=== PATIENT | male | born 1955 | race Caucasian/White ===

== ENCOUNTER 2017-01-09 16:02 | Observation (INO) | payer MEDICAID ==
[~2017-01-09] VITALS: Ht 175.3 cm; Wt 74.8 kg
[2017-01-09] MEDS ORDERED: IOHEXOL 300 MG/ML 100ML BOTTLE IJ ONE (16:26)
[2017-01-09] MEDS ORDERED: SODIUM CHLORIDE 0.9% 1,000 ML IV ONE (16:29)
[2017-01-09] MEDS ORDERED: TETANUS-DIPTH-ACEL PERTUSSIS 0.5ML SYRG IM ONE (16:30)
[2017-01-09 17:01] LABS: Basophils # (auto) 0 uL; Basophils % (auto) 0.5 % (0.0-2.0); DEFINITIVE VIEW TRANSMISSION; Eosinophils # (auto) 0.1 uL; Eosinophils % (auto) 2.6 % (0.0-7.0); Hematocrit 36.1 % (41.0-53.0); Hemoglobin 11.9 g/dL (13.5-17.5); Lymphocytes # (auto) 2.2 uL; Lymphocytes % (auto) 40.3 % (10.0-50.0); Mean Corpuscular Hemoglobin 26.5 pg (28.0-32.0); Mean Corpuscular Hgb Conc. 32.9 g/dL (32.0-36.0); Mean Corpuscular Volume 80.7 fL (80.0-100.0); Mean Platelet Volume 7.5 fL (7.4-10.4); Monocytes # (auto) 0.8 uL; Monocytes % (auto) 14.4 % (0.0-12.0); Neutrophils # (auto) 2.4 uL; Neutrophils % (auto) 42.2 % (37.0-80.0); Platelet Count (auto) 276 10^3/uL (140-450); Red Cell Distribution Width 15.8 % (11.6-16.0); White Blood Cell 5.6 10^3/uL (4.4-10.8)
[2017-01-09 17:06] LABS: Albumin 3.6 g/dL (3.4-5.0); Anion Gap 10 (5-15); Aspartate Aminotransferase 22 U/L (15-37); BUN/Creatinine Ratio 12.3; Blood Urea Nitrogen 9 mg/dL (7-18); Calcium 8.6 mg/dL (8.5-10.1); Carbon Dioxide 27 mmol/L (21-32); Chloride 99 mmol/L (98-107); GFR African American 140 mL/min; GFR Non-African American 115 mL/min; Glucose 74 mg/dL (74-106); Sodium 136 mmol/L (136-145)
[2017-01-09 17:11] LABS: Alkaline Phosphatase 77 U/L (45-117); Bilirubin, Total 0.3 mg/dL (0.2-1.0); Total Protein 6.6 g/dL (6.4-8.2)
[2017-01-09 17:26] LABS: Potassium 2.9 mmol/L (3.5-5.1)
[2017-01-09 18:29] LABS: INR 1.04 (0.9-1.15); Partial Thromboplastin Time 29.4 sec (22.64-33.71); Prothrombin Time 11.2 sec (9.37-12.3)
[2017-01-09] MEDS ORDERED: POTASSIUM CHL 20 Meq TABLET PO ONE (19:15)
[2017-01-09 20:03] VITALS: BP 154/82
== END 2017-01-09 21:27 | disposition home or self-care (01) | DRG 384 ==
LOC: EDBD 16:02 → ER 16:05 → OVERFLOW 16:34 → ER 21:26
PROVIDERS: ADMIT Emergency Medicine; ATTEND Emergency Medicine
DX: S00.03XA Contusion of scalp, initial encounter (principal); I10 Essential (primary) hypertension; J45.909 Unspecified asthma, uncomplicated; K21.9 Gastro-esophageal reflux disease without esophagitis; M47.812 Spondylosis without myelopathy or radiculopathy, cervical region; M62.830 Muscle spasm of back; M54.10 Radiculopathy, site unspecified; S20.212A Contusion of left front wall of thorax, initial encounter; S30.0XXA Contusion of lower back and pelvis, initial encounter; V89.2XXA Person injured in unspecified motor-vehicle accident, traffic, initial encounter; Y92.89 Other specified places as the place of occurrence of the external cause; Y93.89 Activity, other specified; Y99.8 Other external cause status; Z86.73 Personal history of transient ischemic attack (TIA), and cerebral infarction without residual deficits; G89.29 Other chronic pain
CPT/HCPCS: 36415; 70450; 71260; 72125; 72131; 80053; 83735; 84443; 84484; 85025; 85610; 85730; 90471; 90715; 96360; 96361; 99285; G0378; J7030; Q9967

== ENCOUNTER 2017-04-24 18:13 | Emergency (ER) | payer MEDICAID ==
[~2017-04-24] VITALS: Ht 177.8 cm; Wt 74.8 kg
[~2017-04-24 18:13] MED LIST: ALBU18 IN; ASP81EC PO; ATEN-60 PO; CITA10TA59 PO; GABA-339 PO; HYDR50CA2 PO; IBUP800T24 PO; LEV50T PO; LOPE1TAB9 PO; LORA1TAB12 PO; LOVA10TA54 PO; MELO-85 PO; METO25TA62 PO; OMEP20TA PO; OXCA300T26 PO
[2017-04-24] MEDS ORDERED: hydrOXYzine PAMOATE 25 MG CAP PO PRN (22:30)
[2017-04-24] MEDS ORDERED: TIZANIDINE 4 MG PO PRN (22:30)
[2017-04-24] MEDS ORDERED: IBUPROFEN 800 MG TAB PO PRN (22:30)
[2017-04-24] MEDS: OXcarbazepine 300 MG TAB PO SCH (22:57)
[2017-04-24] MEDS: GABAPENTIN 300 MG CAP PO SCH (22:57)
[2017-04-24] MEDS: MORPHINE SULF 30 mg ER tab PO SCH (22:57)
[2017-04-24 23:32] VITALS: BP 172/92
[2017-04-25] MEDS ORDERED: TIZANIDINE 4 MG PO PRN (05:15)
[2017-04-25] MEDS: OXYCODONE W/ ACETAMINOPHEN 5/325MG TABLET PO SCH ×3 (07:43→18:33)
[2017-04-25] MEDS: OXcarbazepine 300 MG TAB PO SCH ×3 (08:44→22:00)
[2017-04-25] MEDS: GABAPENTIN 300 MG CAP PO SCH ×3 (08:44→22:00)
[2017-04-25] MEDS ORDERED: OMEPRAZOLE 20 MG PO SCH (10:00)
[2017-04-25] MEDS: CITALOPRAM HYDROBR 20 MG TAB PO SCH (10:56)
[2017-04-25] MEDS: MORPHINE SULF 30 mg ER tab PO SCH ×2 (10:56→22:00)
[2017-04-25] MEDS: LEVOTHYROXINE SODIUM 25 MCG TAB PO SCH (10:57)
[2017-04-25] MEDS: METOPROLOL SUCCINATE XL 50 MG TAB PO SCH (10:57)
[2017-04-25] MEDS: ATENOLOL 25 MG TAB PO SCH (10:57)
[2017-04-25] MEDS: PANTOPRAZOLE 40 MG TAB PO SCH (10:57)
[2017-04-25] MEDS: ASPirin-EC 81 mg tab PO SCH ×2 (10:58→22:00)
[2017-04-25] MEDS: ALBUTEROL SULF 2.5 MG/0.5ML(0.5%) NEB SOLN NEB PRN (21:55)
[2017-04-26] MEDS: OXYCODONE W/ ACETAMINOPHEN 5/325MG TABLET PO SCH ×2 (06:00→23:06)
[2017-04-26] MEDS: GABAPENTIN 300 MG CAP PO SCH ×3 (07:43→23:05)
[2017-04-26] MEDS: OXcarbazepine 300 MG TAB PO SCH ×3 (07:43→23:05)
[2017-04-26] MEDS: CITALOPRAM HYDROBR 20 MG TAB PO SCH (11:39)
[2017-04-26] MEDS: LEVOTHYROXINE SODIUM 25 MCG TAB PO SCH (11:40)
[2017-04-26] MEDS: ATENOLOL 25 MG TAB PO SCH (11:40)
[2017-04-26] MEDS: METOPROLOL SUCCINATE XL 50 MG TAB PO SCH (11:40)
[2017-04-26] MEDS: ASPirin-EC 81 mg tab PO SCH ×2 (11:40→23:05)
[2017-04-26] MEDS: PANTOPRAZOLE 40 MG TAB PO SCH (11:40)
[2017-04-26] MEDS: MORPHINE SULF 30 mg ER tab PO SCH ×2 (13:38→23:05)
[2017-04-27] MEDS: ALBUTEROL SULF 2.5 MG/0.5ML(0.5%) NEB SOLN NEB PRN (02:13)
[2017-04-27] MEDS: OXYCODONE W/ ACETAMINOPHEN 5/325MG TABLET PO SCH ×4 (04:18→21:19)
[2017-04-27] MEDS: GABAPENTIN 300 MG CAP PO SCH ×3 (08:03→21:19)
[2017-04-27] MEDS: OXcarbazepine 300 MG TAB PO SCH ×3 (08:04→21:20)
[2017-04-27] MEDS: MORPHINE SULF 30 mg ER tab PO SCH ×2 (10:23→21:19)
[2017-04-27] MEDS: PANTOPRAZOLE 40 MG TAB PO SCH (10:23)
[2017-04-27] MEDS: ASPirin-EC 81 mg tab PO SCH ×2 (10:23→21:19)
[2017-04-27] MEDS: CITALOPRAM HYDROBR 20 MG TAB PO SCH (10:23)
[2017-04-27] MEDS: LEVOTHYROXINE SODIUM 25 MCG TAB PO SCH (10:23)
[2017-04-27] MEDS: METOPROLOL SUCCINATE XL 50 MG TAB PO SCH (10:24)
[2017-04-27] MEDS: ATENOLOL 25 MG TAB PO SCH (10:24)
[2017-04-27 12:45] VITALS: BP 127/76
== END 2017-04-27 21:28 | disposition home or self-care (01) ==
LOC: ER 18:21
DX: F32.9 Major depressive disorder, single episode, unspecified (principal); F41.9 Anxiety disorder, unspecified; I10 Essential (primary) hypertension; F17.210 Nicotine dependence, cigarettes, uncomplicated; F10.10 Alcohol abuse, uncomplicated
CPT/HCPCS: 93005; 94640

== ENCOUNTER 2017-06-13 21:44 | Emergency (ER) | payer MEDICAID ==
[~2017-06-13] VITALS: Ht 177.8 cm; Wt 83.9 kg
[2017-06-13 22:31] LABS: Basophils # (auto) 0.1 uL; Basophils % (auto) 0.7 % (0.0-2.0); Eosinophils # (auto) 0.1 uL; Eosinophils % (auto) 0.6 % (0.0-7.0); Hematocrit 35.7 % (41.0-53.0); Hemoglobin 11.9 g/dL (13.5-17.5); Lymphocytes # (auto) 1.9 uL; Lymphocytes % (auto) 18.6 % (10.0-50.0); Mean Corpuscular Hgb Conc. 33.2 g/dL (32.0-36.0); Mean Corpuscular Volume 84.3 fL (80.0-100.0); Mean Platelet Volume 7.2 fL (6.9-10.8); Monocytes # (auto) 1.7 uL; Monocytes % (auto) 16.5 % (0.0-12.0); Neutrophils # (auto) 6.5 uL; Neutrophils % (auto) 63.6 % (37.0-80.0); Platelet Count (auto) 226 10^3/uL (140-450); Red Cell Distribution Width 13.9 % (11.8-14.3); White Blood Cell 10.2 10^3/uL (4.4-10.8)
[2017-06-13 23:01] LABS: Albumin 3.6 g/dL (3.4-5.0); Alkaline Phosphatase 76 U/L (45-117); Anion Gap 8 (5-15); Aspartate Aminotransferase 20 U/L (15-37); BUN/Creatinine Ratio 18.8; Bilirubin, Total 0.3 mg/dL (0.2-1.0); Blood Urea Nitrogen 12 mg/dL (7-18); Calcium 8.2 mg/dL (8.5-10.1); Carbon Dioxide 24 mmol/L (21-32); Chloride 94 mmol/L (98-107); GFR African American 162 mL/min; GFR Non-African American 134 mL/min; Glucose 110 mg/dL (74-106); Magnesium 2.4 mg/dL (1.6-2.6); Potassium 3.6 mmol/L (3.5-5.1); Sodium 126 mmol/L (136-145)
[2017-06-14] MEDS ORDERED: SODIUM CHLORIDE 0.9% 1,000 ML IV ONE ×2 (08:00→09:00)
[2017-06-14 09:02] LABS: Urine Bilirubin Negative (Negative); Urine Blood Negative /uL (Negative); Urine Color Yellow (Yellow); Urine Glucose Normal (Normal); Urine Ketone Negative (Negative); Urine Mucus FEW (None Seen); Urine Nitrite Negative (Negative); Urine RBC <1 /hpf (0 - 3); Urine Urobilinogen Normal (Negative)
[2017-06-14] MEDS ORDERED: OXcarbazepine 300 MG TAB PO ONE (14:15)
[2017-06-14] MEDS ORDERED: GABAPENTIN 400 MG CAP PO ONE (14:15)
[2017-06-14] MEDS ORDERED: LORazepam 0.5 MG TAB PO ONE (14:15)
[2017-06-15] MEDS ORDERED: OXcarbazepine 300 MG TAB PO ONE (02:15)
[2017-06-15] MEDS ORDERED: traZODone HCL 50 MG TAB PO ONE ×2 (02:15→02:45)
[2017-06-15] MEDS ORDERED: IBUPROFEN 800 MG TAB PO PRN (02:15)
[2017-06-15] MEDS ORDERED: IBUPROFEN 800 MG TAB PO ONE (02:15)
[2017-06-15] MEDS ORDERED: hydrOXYzine PAMOATE 25 MG CAP PO ONE (02:15)
[2017-06-15] MEDS ORDERED: HYDROcodone-ACET 10/325MG TAB PO PRN (02:15)
[2017-06-15] MEDS ORDERED: GABAPENTIN 300 MG CAP PO ONE (02:15)
[2017-06-15] MEDS ORDERED: traZODone HCL 50 MG TAB PO PRN (02:45)
[2017-06-15] MEDS ORDERED: ATORVASTATIN 20 MG TAB PO SCH (10:00)
[2017-06-15] MEDS ORDERED: CITALOPRAM HYDROBR 20 MG TAB PO SCH (10:00)
[2017-06-15] MEDS ORDERED: METOPROLOL TARTRATE 25 MG TAB PO SCH (10:00)
[2017-06-15] MEDS ORDERED: ASPirin 81 mg TAB PO SCH (10:00)
[2017-06-15] MEDS ORDERED: FAMOTIDINE 20 MG TAB PO SCH (10:00)
[2017-06-15] MEDS ORDERED: LEVOTHYROXINE SODIUM 25 MCG TAB PO SCH (10:00)
[2017-06-15] MEDS: GABAPENTIN 300 MG CAP PO SCH ×2 (10:12→18:55)
[2017-06-15] MEDS: OXcarbazepine 300 MG TAB PO SCH ×2 (10:13→18:55)
[2017-06-15 16:53] LABS: Albumin 3.8 g/dL (3.4-5.0); BUN/Creatinine Ratio 20.8; Bilirubin, Total 0.2 mg/dL (0.2-1.0); Potassium 4.3 mmol/L (3.5-5.1); Total Protein 7.5 g/dL (6.4-8.2)
[2017-06-15] MEDS ORDERED: hydrOXYzine PAMOATE 25 MG CAP PO SCH (18:00)
[2017-06-15 21:20] VITALS: BP 144/88
== END 2017-06-15 21:31 | disposition short-term general hospital (02) ==
LOC: EDBD 21:44 → ER 21:50
DX: R45.851 Suicidal ideations (principal); F10.10 Alcohol abuse, uncomplicated; I10 Essential (primary) hypertension; F17.210 Nicotine dependence, cigarettes, uncomplicated; Z79.899 Other long term (current) drug therapy
CPT/HCPCS: 36415; 80053; 80307; 80320; 81001; 83735; 84484; 85025; 93005; 96360; 96361; 99285; J7030

== ENCOUNTER 2017-11-19 16:49 | Observation (INO) | payer MEDICAID ==
[~2017-11-19] VITALS: Ht 177.8 cm; Wt 81.6 kg
[~2017-11-19 16:49] MED LIST changes: -MELO-85 PO; +MELO1TAB73 PO
[2017-11-19] MEDS ORDERED: cefTRIAXone 1GM/10ml IVPUSH 10 ML IV ONE (17:45)
[2017-11-19 18:10] LABS: INR 1.07 (0.9-1.15); Partial Thromboplastin Time 34.1 sec (22.64-33.71); Prothrombin Time 11.7 sec (9.37-12.3)
[2017-11-19 18:14] LABS: Albumin 3.4 g/dL (3.4-5.0); BUN/Creatinine Ratio 9.6; Basophils # (auto) 0 uL; Basophils % (auto) 0.5 % (0.0-2.0); Calcium 8.3 mg/dL (8.5-10.1); Eosinophils # (auto) 0.1 uL; Eosinophils % (auto) 1.5 % (0.0-7.0); Hematocrit 40.2 % (41.0-53.0); Hemoglobin 13.3 g/dL (13.5-17.5); Lymphocytes # (auto) 1.9 uL; Lymphocytes % (auto) 27.8 % (10.0-50.0); Mean Corpuscular Hemoglobin 28.3 pg (28.0-32.0); Mean Corpuscular Hgb Conc. 33.2 g/dL (32.0-36.0); Mean Corpuscular Volume 85.4 fL (80.0-100.0); Monocytes # (auto) 1.1 uL; Monocytes % (auto) 16.4 % (0.0-12.0); Neutrophils # (auto) 3.7 uL; Neutrophils % (auto) 53.8 % (37.0-80.0); Nucleated Red Blood Cells % 0.1 %; Platelet Count (auto) 233 10^3/uL (140-450); Red Blood Cells 4.71 10^6/uL (4.5-5.90); Red Cell Distribution Width 15.4 % (11.8-14.3); White Blood Cell 6.9 10^3/uL (4.4-10.8)
[2017-11-19] MEDS ORDERED: TETANUS-DIPTH-ACEL PERTUSSIS 0.5ML SYRG IM ONE (18:15)
[2017-11-19 18:24] LABS: Bilirubin, Total 0.5 mg/dL (0.2-1.0); Total Protein 6.9 g/dL (6.4-8.2)
[2017-11-19] MEDS ORDERED: POTASSIUM CHL 20 Meq TABLET PO ONE ×2 (19:00→20:45)
[2017-11-19] MEDS ORDERED: CLINDAMYCIN 600MG IV 50 ML IV ONE (19:00)
[2017-11-19 19:55] VITALS: BP 154/91
[2017-11-19 21:23] LABS: Urine Bacteria NONE SEEN /hpf (None Seen); Urine Blood Negative /uL (Negative); Urine Mucus FEW (None Seen); Urine Specific Gravity 1.013 (1.001-1.035); Urine WBC 1 /hpf (0 - 3)
[2017-11-19 21:40] LABS: Alcohol, Urine < 3.0 mg/dL (0-5); Amphetamine Screen, Urine POSITIVE (NEGATIVE); Barbiturate Scree,Urine NEGATIVE (NEGATIVE); Benzodiazephine Screen, Urine NEGATIVE (NEGATIVE); Cannabinoid Screen, Urine NEGATIVE (NEGATIVE); Cocaine Screen, Urine NEGATIVE (NEGATIVE); Opiate Scree,Urine POSITIVE (NEGATIVE); Phencyclidine Screen, Urine NEGATIVE (NEGATIVE)
== END 2017-11-19 21:03 | disposition left against medical advice (07) | DRG 383 ==
LOC: ER 16:52 → OVERFLOW 17:39 → ER 21:03
PROVIDERS: ADMIT Family Medicine; ATTEND Family Medicine
DX: L03.114 Cellulitis of left upper limb (principal); I10 Essential (primary) hypertension; E87.6 Hypokalemia; F31.9 Bipolar disorder, unspecified; F17.210 Nicotine dependence, cigarettes, uncomplicated; F10.20 Alcohol dependence, uncomplicated; Z59.0 Homelessness; Z79.899 Other long term (current) drug therapy; Z23 Encounter for immunization
CPT/HCPCS: 36415; 71045; 73130; 80053; 80307; 81001; 83605; 83735; 85025; 85610; 85730; 87040; 90471; 90715; 93005; 96365; 96375; 99285; G0378; J3490